=== PATIENT | female | born 1935 | race Caucasian/White ===

== ENCOUNTER 2016-09-06 16:29 | Inpatient (IN) | payer OTHER ==
[~2016-09-06] VITALS: Ht 160 cm; Wt 69.8 kg
[2016-09-06 19:18] LABS: HEMATOCRIT 26.6 % (36.0-46.0); MCH 29.3 PG (29.0-34.0); MCHC 33.5 G/DL (30.0-36.0); MEAN PLAT.VOLUME 9.6 uM^3 (9.5-12.4); PLATELET COUNT 445 K/uL (156-360); RBC DIS.WIDTH-CV 12.5 % (11.8-14.6); RBC DIS.WIDTH-SD 40.4 % (39-53); RED BLOOD COUNT 3.04 M/uL (3.80-5.20); WHITE BLOOD COUNT 10.6 K/uL (4.1-10.2)
[2016-09-06 19:22] LABS: MCV 87.5 FL (83-99)
[2016-09-06 19:28] LABS: CHLORIDE 99 mEq/L (99-109); POTASSIUM 5.2 mEq/L (3.7-5.4)
[2016-09-06 19:29] LABS: SODIUM 128 mEq/L (136-147)
[2016-09-06 19:31] LABS: GLUCOSE 122 mg/dL (70-99)
[2016-09-06 19:32] LABS: ANION GAP 10 MEQ/L (2-14)
[2016-09-06 19:33] LABS: TOTAL BILIRUBIN 0.3 mg/dL (0.0-1.0)
[2016-09-06 19:34] LABS: ALKALINE PHOSPHATASE 93 IU/L (3-129); GFR ESTIMATE (CALCULATED) 23 mL/min/
[2016-09-06 19:35] LABS: UREA NITROGEN (BUN) 31 mg/dL (9-23)
[2016-09-06] MEDS ORDERED: LISINOPRIL-HCT1 EAC3 PO (22:05)
[2016-09-06] MEDS ORDERED: PRILOSEC20 MG PO (22:05)
[2016-09-06] MEDS ORDERED: PRAVASTATIN SOD80 MG PO (22:05)
[2016-09-06] MEDS ORDERED: METOPROLOL SUC100 MG PO (22:05)
[2016-09-06] MEDS ORDERED: BACTRIM,SEPT1 TABLET PO (22:06)
[2016-09-06 22:09] LABS: ADD MIUA? NO; BILIRUBIN NEGATIVE; BLOOD NEGATIVE; COLOR YELLOW ((YELLOW)); GLUCOSE (STRIP) NEGATIVE; KETONES NEGATIVE; LEUKOCYTES NEGATIVE; NITRITE NEGATIVE; PROTEIN (STRIP) NEGATIVE; UCUL ADDED? NO; UROBILINOGEN 0.2 MG/DL (0.2-1.0)
[2016-09-07 00:49] VITALS: BP 131/53
[2016-09-07 03:30] VITALS: BP 104/56
[2016-09-07 05:51] LABS: HEMATOCRIT 25.9 % (36.0-46.0); MCHC 32.4 G/DL (30.0-36.0); MCV 89.3 FL (83-99); MEAN PLAT.VOLUME 9.5 uM^3 (9.5-12.4); PLATELET COUNT 447 K/uL (156-360); RBC DIS.WIDTH-CV 12.4 % (11.8-14.6); RBC DIS.WIDTH-SD 40.7 % (39-53); WHITE BLOOD COUNT 8.9 K/uL (4.1-10.2)
[2016-09-07 06:06] LABS: CHLORIDE 103 mEq/L (99-109); POTASSIUM 5.1 mEq/L (3.7-5.4); SODIUM 130 mEq/L (136-147)
[2016-09-07 06:08] LABS: GLUCOSE 98 mg/dL (70-99)
[2016-09-07 06:09] LABS: ANION GAP 7 MEQ/L (2-14)
[2016-09-07 06:10] LABS: TOTAL BILIRUBIN 0.3 mg/dL (0.0-1.0)
[2016-09-07 06:11] LABS: ALKALINE PHOSPHATASE 85 IU/L (3-129)
[2016-09-07 06:12] LABS: GFR ESTIMATE (CALCULATED) 31 mL/min/
[2016-09-07 06:13] LABS: UREA NITROGEN (BUN) 24 mg/dL (9-23)
[2016-09-07 11:46] VITALS: BP 110/55
[2016-09-07 16:10] VITALS: BP 128/59
[2016-09-07 17:06] LABS: IRON 26 MCG/DL (35-150)
[2016-09-07 19:56] VITALS: BP 103/51
[2016-09-08 00:01] VITALS: BP 136/80
[2016-09-08 03:55] VITALS: BP 125/57
[2016-09-08 08:00] VITALS: BP 132/61
[2016-09-08 08:30] LABS: HEMATOCRIT 27.4 % (36.0-46.0); MCH 29.9 PG (29.0-34.0); MCHC 32.8 G/DL (30.0-36.0); MEAN PLAT.VOLUME 9.6 uM^3 (9.5-12.4); PLATELET COUNT 494 K/uL (156-360); RBC DIS.WIDTH-CV 12.6 % (11.8-14.6); RBC DIS.WIDTH-SD 41.4 % (39-53); RED BLOOD COUNT 3.01 M/uL (3.80-5.20); WHITE BLOOD COUNT 8.3 K/uL (4.1-10.2)
[2016-09-08 09:03] LABS: ANION GAP 11 MEQ/L (2-14); CHLORIDE 101 MEQ/L (99-109); GFR ESTIMATE (CALCULATED) 42 mL/min/; GLUCOSE 114 mg/dL (70-99); POTASSIUM 4.9 MEQ/L (3.7-5.4); SAMPLE HEMOLYSIS CHECK 0; SAMPLE ICTERIC CHECK 0; SAMPLE LIPEMIA CHECK 0; SODIUM 134 MEQ/L (136-147); UREA NITROGEN (BUN) 18 mg/dL (9-23)
[2016-09-08 11:10] VITALS: BP 138/62
[2016-09-08 15:50] VITALS: BP 119/58
[2016-09-09] VITALS (8 sets, daily range): BP systolic 101–147; BP diastolic 48–80
[2016-09-09 06:50] LABS: HEMATOCRIT 24.3 % (36.0-46.0); MCH 29.4 PG (29.0-34.0); MCHC 32.1 G/DL (30.0-36.0); MCV 91.7 FL (83-99); MEAN PLAT.VOLUME 9.5 uM^3 (9.5-12.4); PLATELET COUNT 430 K/uL (156-360); RBC DIS.WIDTH-CV 12.8 % (11.8-14.6); RBC DIS.WIDTH-SD 42.5 % (39-53); RED BLOOD COUNT 2.65 M/uL (3.80-5.20); WHITE BLOOD COUNT 8.1 K/uL (4.1-10.2)
[2016-09-09 07:18] LABS: ANION GAP 6 MEQ/L (2-14); CHLORIDE 102 MEQ/L (99-109); GFR ESTIMATE (CALCULATED) 51 mL/min/; GLUCOSE 120 mg/dL (70-99); POTASSIUM 4.8 MEQ/L (3.7-5.4); SAMPLE HEMOLYSIS CHECK 0; SAMPLE ICTERIC CHECK 0; SAMPLE LIPEMIA CHECK 0; SODIUM 131 MEQ/L (136-147); UREA NITROGEN (BUN) 13 mg/dL (9-23)
[2016-09-09 12:38] LABS: HEMATOCRIT 25.1 % (36.0-46.0); MCV 90.9 FL (83-99)
[2016-09-09 17:24] LABS: ABSOLUTE RETICULOCYTE CT. 0.1 M/uL (0.02-0.08); IMM.RETIC FRACTION 20.2 % (3-19); RETIC HGB EQUIVALENT 28.9 (28-36); RETICULOCYTE COUNT 1.9 % (0.5-1.8)
[2016-09-09 17:49] LABS: TOTAL BILIRUBIN 0.4 MG/DL (0.0-1.0)
[2016-09-09 20:06] LABS: HEMATOCRIT 23.6 % (36.0-46.0); MCV 90.4 FL (83-99)
[2016-09-10] VITALS (7 sets, daily range): BP systolic 95–121; BP diastolic 47–61
[2016-09-10 04:27] LABS: HEMATOCRIT 33.4 % (36.0-46.0); MCV 88.6 FL (83-99)
== END 2016-09-10 13:52 | disposition home or self-care (01) | DRG 683 ==
LOC: EME 16:29 → 2EAST 22:26 → EDOF 22:26 → 2EAST 09-07 11:17
PROVIDERS: Hospitalist; Internal Medicine; Internal Medicine Hematology & Oncology; Physician Assistant
PROC: 0DJ08ZZ Inspection of Upper Intestinal Tract, Via Natural or Artificial Opening Endoscopic (ICD-10-PCS; principal; 2016-09-08)
PROC: 30233N1 Transfusion of Nonautologous Red Blood Cells into Peripheral Vein, Percutaneous Approach (ICD-10-PCS; 2016-09-08)
PROC: 0DJD8ZZ Inspection of Lower Intestinal Tract, Via Natural or Artificial Opening Endoscopic (ICD-10-PCS; 2016-09-08)
DX: N17.9 Acute kidney failure, unspecified (principal); E87.1 Hypo-osmolality and hyponatremia; R18.8 Other ascites; E86.0 Dehydration; Q27.30 Arteriovenous malformation, site unspecified; I10 Essential (primary) hypertension; R73.9 Hyperglycemia, unspecified; K21.9 Gastro-esophageal reflux disease without esophagitis; E78.00 Pure hypercholesterolemia, unspecified; K74.60 Unspecified cirrhosis of liver; K44.9 Diaphragmatic hernia without obstruction or gangrene; Z96.643 Presence of artificial hip joint, bilateral; K27.9 Peptic ulcer, site unspecified, unspecified as acute or chronic, without hemorrhage or perforation; D50.9 Iron deficiency anemia, unspecified; K57.30 Diverticulosis of large intestine without perforation or abscess without bleeding; I70.90 Unspecified atherosclerosis; Z80.0 Family history of malignant neoplasm of digestive organs; K59.00 Constipation, unspecified; R73.03 Prediabetes
CPT/HCPCS: 74020; 74176; 80048; 80053; 81003; 82247; 82272; 82607; 82728; 82746; 83540; 83615; 84466; 85014; 85018; 85027; 85045; 86880; 86900; 86901; 86920; 99281; 99285; J1200; J1644; J7030; J7040; J7042; P9016; S0028

== ENCOUNTER → 2016-09-21 | Outpatient (CLI) | payer OTHER ==
[~2016-09-21] MED LIST: BACTRIM,SEPT1 TABLET PO; LISINOPRIL-HCT1 EAC3 PO; METOPROLOL SUC100 MG PO; PRAVASTATIN SOD80 MG PO; PRILOSEC20 MG PO
[2016-09-21 09:05] LABS: TYPE OF FLUID PARACENTESIS
[2016-09-21 09:51] LABS: BODY FLUID LDH 175 IU/L; BODY FLUID PROTEIN 3.7 G/DL
[2016-09-21 10:19] LABS: BODY FLUID EOSINOPHILS 0 % (0-25); BODY FLUID RBC'S 2000 /MM^3 (0-100); BODY FLUID WBC'S 739 /MM^3 (0-500); MONONUCLEAR WBC'S 95 %; POLYNUCLEAR WBC'S 5 % (0-25)
== END | disposition home or self-care (01) ==
LOC: RAD 07:55
PROVIDERS: Internal Medicine Gastroenterology
PROC: 0W9G3ZZ Drainage of Peritoneal Cavity, Percutaneous Approach (ICD-10-PCS; principal; 2016-09-21)
DX: R18.8 Other ascites (principal)
CPT/HCPCS: 82945; 83615 91; 84157; 88108; 88341 TC; 88342 TC; 89051

== ENCOUNTER → 2016-10-05 | Outpatient (CLI) | payer OTHER | END | disposition home or self-care (01) | LOC: RAD 12:22 | PROC: 0W9G3ZZ Drainage of Peritoneal Cavity, Percutaneous Approach (ICD-10-PCS; principal; 2016-10-05) | DX: R18.8 Other ascites (principal); C78.6 Secondary malignant neoplasm of retroperitoneum and peritoneum; C80.1 Malignant (primary) neoplasm, unspecified | CPT/HCPCS: 49083 ==

== ENCOUNTER → 2016-10-13 | Outpatient (CLI) | payer OTHER ==
[~2016-10-13] MED LIST changes: +PACLITAXEL6 MG/1 ML IV; +PARAPLATIN IV
== END | disposition home or self-care (01) ==
LOC: RAD 13:26
PROC: 0W9G3ZZ Drainage of Peritoneal Cavity, Percutaneous Approach (ICD-10-PCS; principal; 2016-10-13)
DX: R18.0 Malignant ascites (principal)
CPT/HCPCS: 49083

== ENCOUNTER 2016-11-07 19:54 | Inpatient (IN) | payer OTHER ==
[~2016-11-07] VITALS: Ht 160 cm; Wt 74.1 kg
[2016-11-07 20:42] LABS: MEAN PLAT.VOLUME 10.7 uM^3 (9.5-12.4); PLATELET COUNT 294 K/uL (156-360)
[2016-11-07 20:45] LABS: CHLORIDE 101 mEq/L (99-109); POTASSIUM 4.1 mEq/L (3.7-5.4); SODIUM 134 mEq/L (136-147)
[2016-11-07 20:46] LABS: GLUCOSE 158 mg/dL (70-99)
[2016-11-07 20:48] LABS: ANION GAP 9 MEQ/L (2-14)
[2016-11-07 20:50] LABS: GFR ESTIMATE (CALCULATED) > 59 mL/min/
[2016-11-07 20:51] LABS: UREA NITROGEN (BUN) 17 mg/dL (9-23)
[2016-11-07 22:00] LABS: ADD MIUA? YES; BILIRUBIN NEGATIVE; BLOOD NEGATIVE; GLUCOSE (STRIP) NEGATIVE; KETONES NEGATIVE; LEUKOCYTES TRACE; NITRITE NEGATIVE; PROTEIN (STRIP) 100; SPECIFIC GRAVITY 1.018 (1.000-1.030)
[2016-11-07 22:02] LABS: COLOR DK YELLOW ((YELLOW))
[2016-11-07 22:09] LABS: ABS NEUTROPHIL COUNT 0.2; ANISOCYTOSIS 1+; ATYPICAL LYMPHOCYTE 9.2 %; BAND NEUTROPHILS 6.8 % (0-8.0); BASOPHILS 0.5 %; EOSINOPHIL ABS CT 0; GIANT PLATELETS 2+; HEMATOCRIT 25.4 % (36.0-46.0); HYPOCHROMASIA 1+; INSTRUMENT ABS NEUTROPHIL CT 0.1 K/uL; MACROCYTES 1+; MCH 27.2 PG (29.0-34.0); MCHC 32.7 G/DL (30.0-36.0); MCV 83.3 FL (83-99); MICROCYTOSIS 2+; PLAT.SUFFICIENCY ADEQUATE; PLATELET CLUMPS PRESENT - PLATELET COUNT APPEARS ADQ.; RBC DIS.WIDTH-CV 15.2 % (11.8-14.6); RBC DIS.WIDTH-SD 45.2 % (39-53); RED BLOOD COUNT 3.05 M/uL (3.80-5.20); SMUDGE CELLS 30.6
[2016-11-07 22:11] LABS: LYMPHOCYTES 61.1 % (15.0-45.0); SEG.NEUTROPHILS 19.9 % (46.0-76.0); WHITE BLOOD COUNT 0.7 K/uL (4.1-10.2)
[2016-11-07 22:15] LABS: BACTERIA 3+ /HPF; EPITHELIAL CELLS 1+ /HPF; MUCUS TRACE /LPF; RED BLOOD CELLS 0-5 /HPF (0-5); UCUL ADDED? YES; WHITE BLOOD CELLS 15-20 /HPF (0-5)
[2016-11-07 22:16] LABS: CASTS NONE SEEN /LPF; CRYSTALS NONE SEEN
[2016-11-08 06:15] VITALS: BP 111/56
[2016-11-08 15:00] VITALS: BP 96/53
[2016-11-08 23:19] VITALS: BP 108/51
[2016-11-09 00:50] VITALS: BP 104/51
[2016-11-09 03:32] LABS: C DIFF TOXIN POSITIVE (NEGATIVE)
[2016-11-09 03:44] LABS: PROBE CHECK PASS
[2016-11-09 06:52] LABS: ANION GAP 8 MEQ/L (2-14); CHLORIDE 104 MEQ/L (99-109); GFR ESTIMATE (CALCULATED) > 59 mL/min/; SAMPLE HEMOLYSIS CHECK 0; SAMPLE ICTERIC CHECK 0; SAMPLE LIPEMIA CHECK 0; SODIUM 139 MEQ/L (136-147); UREA NITROGEN (BUN) 14 mg/dL (9-23)
[2016-11-09 06:55] LABS: HEMATOCRIT 20.9 % (36.0-46.0); MCH 27.3 PG (29.0-34.0); MCHC 32.5 G/DL (30.0-36.0); MCV 83.9 FL (83-99); MEAN PLAT.VOLUME 10.3 uM^3 (9.5-12.4); PLATELET COUNT 280 K/uL (156-360); RBC DIS.WIDTH-CV 15.2 % (11.8-14.6); RBC DIS.WIDTH-SD 46.5 % (39-53); RED BLOOD COUNT 2.49 M/uL (3.80-5.20)
[2016-11-09 07:05] LABS: GLUCOSE 105 mg/dL (70-99); POTASSIUM 3.1 MEQ/L (3.7-5.4)
[2016-11-09 07:25] VITALS: BP 106/51
[2016-11-09 16:17] VITALS: BP 102/53
[2016-11-09 16:59] LABS: METH RESISTANT S AUREUS PCR NEGATIVE (NEGATIVE)
[2016-11-09 17:18] LABS: PROBE CHECK PASS; SPECIMEN PROCESSING CONTROL PASS
[2016-11-09 17:52] VITALS: BP 115/56
[2016-11-09 19:23] VITALS: BP 112/56
[2016-11-09 23:57] VITALS: BP 107/55
[2016-11-10] VITALS (7 sets, daily range): BP systolic 103–123; BP diastolic 52–56
[2016-11-10 09:32] LABS: HEMATOCRIT 30.8 % (36.0-46.0); MCHC 35.1 G/DL (30.0-36.0); MCV 82.8 FL (83-99); MEAN PLAT.VOLUME 10.8 uM^3 (9.5-12.4); PLATELET COUNT 336 K/uL (156-360); RBC DIS.WIDTH-CV 14.6 % (11.8-14.6); RBC DIS.WIDTH-SD 43.3 % (39-53)
[2016-11-10 09:34] LABS: RED BLOOD COUNT 3.72 M/uL (3.80-5.20)
[2016-11-10 09:45] LABS: ANION GAP 8 MEQ/L (2-14); CHLORIDE 106 MEQ/L (99-109); GFR ESTIMATE (CALCULATED) > 59 mL/min/; GLUCOSE 111 mg/dL (70-99); POTASSIUM 4.1 MEQ/L (3.7-5.4); SAMPLE HEMOLYSIS CHECK 0; SAMPLE ICTERIC CHECK 0; SAMPLE LIPEMIA CHECK 0; SODIUM 139 MEQ/L (136-147); UREA NITROGEN (BUN) 19 mg/dL (9-23)
[2016-11-10 10:41] LABS: ABS NEUTROPHIL COUNT 0.3; EOSINOPHIL ABS CT 0; INSTRUMENT ABS NEUTROPHIL CT 0.3 K/uL; PLAT.SUFFICIENCY ADEQUATE
[2016-11-11 00:43] VITALS: BP 126/72
[2016-11-11 06:55] VITALS: BP 124/74
[2016-11-11 09:51] LABS: HEMATOCRIT 35.6 % (36.0-46.0); MCH 27.8 PG (29.0-34.0); MCHC 33.7 G/DL (30.0-36.0); MCV 82.4 FL (83-99); MEAN PLAT.VOLUME 10.7 uM^3 (9.5-12.4); NRBC (%) 0.7 /100 WBC (0-0); RBC DIS.WIDTH-CV 14.9 % (11.8-14.6); RED BLOOD COUNT 4.32 M/uL (3.80-5.20); WHITE BLOOD COUNT 2.8 K/uL (4.1-10.2)
[2016-11-11 09:53] LABS: PLATELET COUNT 446 K/uL (156-360)
[2016-11-11 10:29] LABS: ANION GAP 10 MEQ/L (2-14); CHLORIDE 104 MEQ/L (99-109); GFR ESTIMATE (CALCULATED) > 59 mL/min/; GLUCOSE 115 mg/dL (70-99); POTASSIUM 3.7 MEQ/L (3.7-5.4); SAMPLE HEMOLYSIS CHECK 0; SAMPLE ICTERIC CHECK 0; SAMPLE LIPEMIA CHECK 0; SODIUM 140 MEQ/L (136-147); UREA NITROGEN (BUN) 19 mg/dL (9-23)
[2016-11-11 18:17] VITALS: BP 120/86
[2016-11-12 00:13] VITALS: BP 121/72
[2016-11-12 07:12] LABS: ANION GAP 8 MEQ/L (2-14); CHLORIDE 110 MEQ/L (99-109); GFR ESTIMATE (CALCULATED) > 59 mL/min/; GLUCOSE 103 mg/dL (70-99); POTASSIUM 3.7 MEQ/L (3.7-5.4); SAMPLE HEMOLYSIS CHECK 0; SAMPLE ICTERIC CHECK 0; SAMPLE LIPEMIA CHECK 0; SODIUM 141 MEQ/L (136-147); UREA NITROGEN (BUN) 18 mg/dL (9-23)
[2016-11-12 08:59] VITALS: BP 133/75
[2016-11-12 16:32] VITALS: BP 130/74
[2016-11-12 23:15] VITALS: BP 130/80
[2016-11-13 08:22] LABS: HEMATOCRIT 33.6 % (36.0-46.0); MCHC 34.8 G/DL (30.0-36.0); MCV 83.2 FL (83-99); MEAN PLAT.VOLUME 10.6 uM^3 (9.5-12.4); NRBC (%) 0.3 /100 WBC (0-0); PLATELET COUNT 450 K/uL (156-360); RED BLOOD COUNT 4.04 M/uL (3.80-5.20)
[2016-11-13 08:24] VITALS: BP 130/75
[2016-11-13 08:49] LABS: ANION GAP 6 MEQ/L (2-14); CHLORIDE 111 MEQ/L (99-109); GFR ESTIMATE (CALCULATED) > 59 mL/min/; GLUCOSE 102 mg/dL (70-99); MAGNESIUM 1.4 mg/dl (1.3-2.7); POTASSIUM 3.9 MEQ/L (3.7-5.4); SAMPLE HEMOLYSIS CHECK 0; SAMPLE ICTERIC CHECK 0; SAMPLE LIPEMIA CHECK 0; SODIUM 140 MEQ/L (136-147); UREA NITROGEN (BUN) 18 mg/dL (9-23)
[2016-11-13 16:31] VITALS: BP 135/82
[2016-11-13 23:33] VITALS: BP 118/63
[2016-11-14 06:37] LABS: HEMATOCRIT 34.3 % (36.0-46.0); MCH 28.6 PG (29.0-34.0); MCHC 33.8 G/DL (30.0-36.0); MCV 84.5 FL (83-99); MEAN PLAT.VOLUME 10.6 uM^3 (9.5-12.4); NRBC (%) 0.3 /100 WBC (0-0); PLATELET COUNT 452 K/uL (156-360); RBC DIS.WIDTH-CV 16.6 % (11.8-14.6); RED BLOOD COUNT 4.06 M/uL (3.80-5.20); WHITE BLOOD COUNT 9.4 K/uL (4.1-10.2)
[2016-11-14 06:51] LABS: INTER. NORMALIZED RATIO 1.4; PROTHROMBIN TIME 15.4 SEC (10.2-12.9)
[2016-11-14 06:54] LABS: PTT 32.7 SEC (25-37)
[2016-11-14 07:28] LABS: ALKALINE PHOSPHATASE 96 IU/L (3-129); ANION GAP 5 MEQ/L (2-14); CHLORIDE 113 MEQ/L (99-109); GFR ESTIMATE (CALCULATED) > 59 mL/min/; GLUCOSE 100 mg/dL (70-99); POTASSIUM 4.5 MEQ/L (3.7-5.4); SAMPLE HEMOLYSIS CHECK 0; SAMPLE ICTERIC CHECK 0; SAMPLE LIPEMIA CHECK 0; SODIUM 143 MEQ/L (136-147); TOTAL BILIRUBIN 0.4 MG/DL (0.0-1.0); UREA NITROGEN (BUN) 18 mg/dL (9-23)
[2016-11-14 07:30] VITALS: BP 129/72
[2016-11-14 15:35] VITALS: BP 131/76
[2016-11-14 23:45] VITALS: BP 119/65
[2016-11-15 06:26] LABS: HEMATOCRIT 35.2 % (36.0-46.0); MCH 28.6 PG (29.0-34.0); MCHC 33.5 G/DL (30.0-36.0); MCV 85.2 FL (83-99); MEAN PLAT.VOLUME 10.7 uM^3 (9.5-12.4); NRBC (%) 0.3 /100 WBC (0-0); PLATELET COUNT 421 K/uL (156-360); RBC DIS.WIDTH-CV 17.4 % (11.8-14.6); RBC DIS.WIDTH-SD 51.6 % (39-53); RED BLOOD COUNT 4.13 M/uL (3.80-5.20); WHITE BLOOD COUNT 11.7 K/uL (4.1-10.2)
[2016-11-15 06:57] LABS: ANION GAP 6 MEQ/L (2-14); CHLORIDE 114 MEQ/L (99-109); GFR ESTIMATE (CALCULATED) > 59 mL/min/; GLUCOSE 104 mg/dL (70-99); POTASSIUM 4.9 MEQ/L (3.7-5.4); SAMPLE HEMOLYSIS CHECK 0; SAMPLE ICTERIC CHECK 0; SAMPLE LIPEMIA CHECK 0; SODIUM 143 MEQ/L (136-147); UREA NITROGEN (BUN) 17 mg/dL (9-23)
[2016-11-15 07:45] VITALS: BP 131/64
[2016-11-15 16:28] VITALS: BP 154/81
[2016-11-16 00:58] VITALS: BP 123/70
[2016-11-16 07:37] VITALS: BP 130/90
[2016-11-16 08:39] LABS: HEMATOCRIT 35.1 % (36.0-46.0); MCH 28.5 PG (29.0-34.0); MCHC 33.3 G/DL (30.0-36.0); MCV 85.6 FL (83-99); MEAN PLAT.VOLUME 11.2 uM^3 (9.5-12.4); NRBC (%) 0.4 /100 WBC (0-0); PLATELET COUNT 393 K/uL (156-360); RBC DIS.WIDTH-CV 18.2 % (11.8-14.6); RBC DIS.WIDTH-SD 53.4 % (39-53); WHITE BLOOD COUNT 15.9 K/uL (4.1-10.2)
[2016-11-16 08:54] LABS: ANION GAP 7 MEQ/L (2-14); CHLORIDE 115 MEQ/L (99-109); GFR ESTIMATE (CALCULATED) > 59 mL/min/; GLUCOSE 127 mg/dL (70-99); POTASSIUM 4.4 MEQ/L (3.7-5.4); SAMPLE HEMOLYSIS CHECK 0; SAMPLE ICTERIC CHECK 0; SAMPLE LIPEMIA CHECK 0; SODIUM 142 MEQ/L (136-147); UREA NITROGEN (BUN) 14 mg/dL (9-23)
[2016-11-16 15:18] VITALS: BP 156/95
[2016-11-17] VITALS: BP 129/82
[2016-11-17 07:55] VITALS: BP 128/84
[2016-11-17 08:59] LABS: TYPE OF FLUID PLEURAL
[2016-11-17 09:51] LABS: HEMATOCRIT 36.2 % (36.0-46.0); MCH 28.3 PG (29.0-34.0); MCHC 32.9 G/DL (30.0-36.0); MCV 86.2 FL (83-99); MEAN PLAT.VOLUME 10.5 uM^3 (9.5-12.4); NRBC (%) 0.2 /100 WBC (0-0); PLATELET COUNT 359 K/uL (156-360); RBC DIS.WIDTH-SD 56.9 % (39-53)
[2016-11-17 10:21] LABS: BODY FLUID EOSINOPHILS 0 % (0-25); BODY FLUID RBC'S < 1000 /MM^3 (0-100); BODY FLUID WBC'S 33 /MM^3 (0-500); MONONUCLEAR WBC'S 93 %; POLYNUCLEAR WBC'S 7 % (0-25)
[2016-11-17 10:28] LABS: ANION GAP 7 MEQ/L (2-14); CHLORIDE 115 MEQ/L (99-109); GFR ESTIMATE (CALCULATED) > 59 mL/min/; GLUCOSE 168 mg/dL (70-99); POTASSIUM 4.8 MEQ/L (3.7-5.4); SAMPLE HEMOLYSIS CHECK 0; SAMPLE ICTERIC CHECK 0; SAMPLE LIPEMIA CHECK 0; SODIUM 144 MEQ/L (136-147); UREA NITROGEN (BUN) 17 mg/dL (9-23)
[2016-11-17 10:51] LABS: BODY FLUID LDH 109 IU/L; BODY FLUID PROTEIN < 3.0 G/DL
[2016-11-17 15:35] VITALS: BP 124/82
[2016-11-17 23:25] VITALS: BP 137/67
[2016-11-18 08:34] VITALS: BP 112/79
[2016-11-18 09:06] LABS: HEMATOCRIT 37.2 % (36.0-46.0); MCH 27.5 PG (29.0-34.0); MCHC 32.3 G/DL (30.0-36.0); MCV 85.3 FL (83-99); MEAN PLAT.VOLUME 10.7 uM^3 (9.5-12.4); NRBC (%) 0.2 /100 WBC (0-0); PLATELET COUNT 364 K/uL (156-360); RBC DIS.WIDTH-CV 19.6 % (11.8-14.6); RBC DIS.WIDTH-SD 57.4 % (39-53); RED BLOOD COUNT 4.36 M/uL (3.80-5.20); WHITE BLOOD COUNT 21.3 K/uL (4.1-10.2)
[2016-11-18 09:31] LABS: ANION GAP 7 MEQ/L (2-14); CHLORIDE 114 MEQ/L (99-109); GFR ESTIMATE (CALCULATED) > 59 mL/min/; GLUCOSE 121 mg/dL (70-99); POTASSIUM 4.1 MEQ/L (3.7-5.4); SAMPLE HEMOLYSIS CHECK 0; SAMPLE ICTERIC CHECK 0; SAMPLE LIPEMIA CHECK 0; SODIUM 145 MEQ/L (136-147); UREA NITROGEN (BUN) 22 mg/dL (9-23)
[2016-11-18 12:05] VITALS: BP 118/67
[2016-11-18 16:01] VITALS: BP 169/95
[2016-11-18 23:55] VITALS: BP 116/58
[2016-11-19 07:21] LABS: HEMATOCRIT 34.2 % (36.0-46.0); MCH 27.7 PG (29.0-34.0); MCHC 32.7 G/DL (30.0-36.0); MCV 84.7 FL (83-99); MEAN PLAT.VOLUME 11.3 uM^3 (9.5-12.4); NRBC (%) 0.4 /100 WBC (0-0); PLATELET COUNT 346 K/uL (156-360); RBC DIS.WIDTH-CV 19.5 % (11.8-14.6); RBC DIS.WIDTH-SD 57.3 % (39-53); RED BLOOD COUNT 4.04 M/uL (3.80-5.20); WHITE BLOOD COUNT 16.9 K/uL (4.1-10.2)
[2016-11-19 07:39] LABS: ANION GAP 6 MEQ/L (2-14); CHLORIDE 111 MEQ/L (99-109); GFR ESTIMATE (CALCULATED) 57 mL/min/; GLUCOSE 96 mg/dL (70-99); POTASSIUM 3.7 MEQ/L (3.7-5.4); SAMPLE HEMOLYSIS CHECK 0; SAMPLE ICTERIC CHECK 0; SAMPLE LIPEMIA CHECK 0; SODIUM 144 MEQ/L (136-147); UREA NITROGEN (BUN) 22 mg/dL (9-23)
[2016-11-19 08:32] LABS: ABS NEUTROPHIL COUNT 15.3; ANISOCYTOSIS 1+; BAND NEUTROPHILS 5.3 % (0-8.0); EOSINOPHIL ABS CT 0; INSTRUMENT ABS NEUTROPHIL CT 11.1 K/uL; MACROCYTES 1+; METAMYELOCYTES 1.7 %; NUCLEATED RBC'S 0.9; PLAT.SUFFICIENCY INCREASED; SPHEROCYTES 1+
[2016-11-19 08:38] VITALS: BP 123/66
[2016-11-19 08:59] LABS: LYMPHOCYTES 4.4 % (15.0-45.0); SEG.NEUTROPHILS 85.1 % (46.0-76.0)
[2016-11-19 16:02] VITALS: BP 128/69
[2016-11-19 23:03] VITALS: BP 105/55
[2016-11-20 06:23] LABS: HEMATOCRIT 33.9 % (36.0-46.0); MCH 28.9 PG (29.0-34.0); MCHC 34.2 G/DL (30.0-36.0); MCV 84.5 FL (83-99); MEAN PLAT.VOLUME 11.6 uM^3 (9.5-12.4); NRBC (%) 0.3 /100 WBC (0-0); PLATELET COUNT 352 K/uL (156-360); RBC DIS.WIDTH-CV 19.8 % (11.8-14.6); RBC DIS.WIDTH-SD 57.2 % (39-53); RED BLOOD COUNT 4.01 M/uL (3.80-5.20); WHITE BLOOD COUNT 17.3 K/uL (4.1-10.2)
[2016-11-20 06:48] LABS: ANION GAP 9 MEQ/L (2-14); CHLORIDE 109 MEQ/L (99-109); GFR ESTIMATE (CALCULATED) 51 mL/min/; GLUCOSE 92 mg/dL (70-99); POTASSIUM 3.8 MEQ/L (3.7-5.4); SAMPLE HEMOLYSIS CHECK 0; SAMPLE ICTERIC CHECK 0; SAMPLE LIPEMIA CHECK 0; SODIUM 143 MEQ/L (136-147); UREA NITROGEN (BUN) 20 mg/dL (9-23)
[2016-11-20 07:27] LABS: ABS NEUTROPHIL COUNT 13.6; ANISOCYTOSIS 2+; ATYPICAL LYMPHOCYTE 4.4 %; BAND NEUTROPHILS 1.8 % (0-8.0); EOSINOPHIL ABS CT 0; INSTRUMENT ABS NEUTROPHIL CT 11.1 K/uL; LYMPHOCYTES 4.4 % (15.0-45.0); METAMYELOCYTES 2.7 %; MYELOCYTES 2.6 %; PLAT.SUFFICIENCY INCREASED; POIKILOCYTOSIS 1+; SPHEROCYTES 1+; TARGET CELLS 1+
[2016-11-20 07:30] VITALS: BP 122/77
[2016-11-20 15:35] VITALS: BP 126/79
[2016-11-20 22:47] VITALS: BP 89/40
[2016-11-20 23:30] VITALS: BP 100/50
[2016-11-21 07:12] LABS: HEMATOCRIT 28.4 % (36.0-46.0); MCH 27.9 PG (29.0-34.0); MCHC 32.7 G/DL (30.0-36.0); MCV 85.3 FL (83-99); PLATELET COUNT 275 K/uL (156-360); RBC DIS.WIDTH-CV 19.7 % (11.8-14.6); RBC DIS.WIDTH-SD 58.9 % (39-53); RED BLOOD COUNT 3.33 M/uL (3.80-5.20); WHITE BLOOD COUNT 10.4 K/uL (4.1-10.2)
[2016-11-21 07:21] LABS: ANION GAP 5 MEQ/L (2-14); CHLORIDE 107 MEQ/L (99-109); GFR ESTIMATE (CALCULATED) 57 mL/min/; GLUCOSE 88 mg/dL (70-99); POTASSIUM 3.7 MEQ/L (3.7-5.4); SAMPLE HEMOLYSIS CHECK 0; SAMPLE ICTERIC CHECK 0; SAMPLE LIPEMIA CHECK 0; SODIUM 143 MEQ/L (136-147); UREA NITROGEN (BUN) 19 mg/dL (9-23)
[2016-11-21 07:43] LABS: ANISOCYTOSIS 1+; BAND NEUTROPHILS 1.9 % (0-8.0); BASOPHILS 1.8 %; EOSINOPHIL ABS CT 0; INSTRUMENT ABS NEUTROPHIL CT 6.8 K/uL; LYMPHOCYTES 6.5 % (15.0-45.0); METAMYELOCYTES 0.9 %; MYELOCYTES 2.8 %; PLAT.SUFFICIENCY ADEQUATE; SEG.NEUTROPHILS 84.3 % (46.0-76.0)
[2016-11-21 08:51] VITALS: BP 112/60
[2016-11-21] MEDS ORDERED: ESCITALOPRAM OX10 MG PO (14:36)
[2016-11-21] MEDS ORDERED: VANCOMYCIN HCL250 MG PO (14:36)
[2016-11-21 15:58] VITALS: BP 100/62
== END 2016-11-21 18:31 | disposition hospice, home (50) | DRG 871 ==
LOC: EME 19:54 → 5EAST 11-08 03:51 → EDOF 11-08 03:51 → ENRESERV 11-08 03:53 → 5EAST 11-08 06:20
PROVIDERS: Hospitalist; Internal Medicine; Radiology Diagnostic Radiology
PROC: 30233N1 Transfusion of Nonautologous Red Blood Cells into Peripheral Vein, Percutaneous Approach (ICD-10-PCS; 2016-11-09)
PROC: 0W9G3ZZ Drainage of Peritoneal Cavity, Percutaneous Approach (ICD-10-PCS; principal; 2016-11-14)
PROC: 0W9B3ZZ Drainage of Left Pleural Cavity, Percutaneous Approach (ICD-10-PCS; 2016-11-17)
DX: A41.9 Sepsis, unspecified organism (principal); N39.0 Urinary tract infection, site not specified; A04.7 Enterocolitis due to Clostridium difficile; J15.0 Pneumonia due to Klebsiella pneumoniae; B96.1 Klebsiella pneumoniae [K. pneumoniae] as the cause of diseases classified elsewhere; D70.1 Agranulocytosis secondary to cancer chemotherapy; T45.1X5A Adverse effect of antineoplastic and immunosuppressive drugs, initial encounter; R50.81 Fever presenting with conditions classified elsewhere; K21.9 Gastro-esophageal reflux disease without esophagitis; D64.81 Anemia due to antineoplastic chemotherapy; C78.6 Secondary malignant neoplasm of retroperitoneum and peritoneum; J90 Pleural effusion, not elsewhere classified; I70.90 Unspecified atherosclerosis; I10 Essential (primary) hypertension; E46 Unspecified protein-calorie malnutrition; R09.02 Hypoxemia; F32.9 Major depressive disorder, single episode, unspecified; E86.0 Dehydration; E87.6 Hypokalemia; R18.8 Other ascites; J98.11 Atelectasis; Z66 Do not resuscitate; Z96.643 Presence of artificial hip joint, bilateral; Z80.1 Family history of malignant neoplasm of trachea, bronchus and lung; Z72.0 Tobacco use
CPT/HCPCS: 49083; 71010; 71020; 71250; 76942; 80048; 80053; 81003; 82945; 83605; 83615 91; 83735; 84157; 85025; 85027; 85610; 85730; 86304; 86900; 86901; 86920; 87040; 87070; 87077; 87086; 87186; 87205; 87493; 87641; 88108; 88305; 89051; 93306; 94640; 94640 76; 94760; 94799; 96360; 97530 GP; 99202; 99281; 99285; C1753; J0692; J1650; J1940; J2405; J3243; J3260; J3370; J3480; J7030; J7050; P9040; Q0177; S0030

== ENCOUNTER → 2017-01-10 | Outpatient (CLI) | payer OTHER ==
[~2017-01-10] MED LIST changes: +ESCITALOPRAM OX10 MG PO; +OXAYDO5 MG PO; +PRILOSEC10 MG PO; +SENNA8.6 MG PO; +VANCOMYCIN HCL250 MG PO
== END | disposition home or self-care (01) ==
LOC: RAD 13:10
PROC: 0W9G3ZZ Drainage of Peritoneal Cavity, Percutaneous Approach (ICD-10-PCS; principal; 2017-01-10)
DX: R18.8 Other ascites (principal); C48.2 Malignant neoplasm of peritoneum, unspecified
CPT/HCPCS: 49083